=== PATIENT | female | born 1975 | race Caucasian/White ===

== ENCOUNTER 2022-10-01 05:16 | Emergency (ER) | payer OTHER, MEDICAID ==
[~2022-10-01] VITALS: Ht 157.5 cm; Wt 72.6 kg
[2022-10-01 05:22] VITALS: BP_SYST 129; PULSE 88; RESP 18; TEMP 98.5; O2SAT 99
[2022-10-01 06:04] LABS: BASOPHILS % (AUTO) 0.2 % (0.0-2.0); EOSINOPHILS # (AUTO) 0.3 K/uL (0.0-0.4); EOSINOPHILS % (AUTO) 3.1 % (0.0-4.0); HEMATOCRIT 40.3 % (36-48); HEMOGLOBIN 13.3 g/dL (12.0-16.0); LYMPHOCYTES # (AUTO) 1.9 K/uL (1.0-5.5); LYMPHOCYTES % (AUTO) 21.8 % (20.5-51.5); MEAN CORPUSCULAR HEMOGLOBIN 30 pg (27-31); MEAN CORPUSCULAR HGB CONC 33 % (32-36); MEAN CORPUSCULAR VOLUME 91 fL (79.0-98.0); MONOCYTES # (AUTO) 0.7 K/uL (0.0-1.0); MONOCYTES % (AUTO) 7.8 % (1.7-9.3); NEUTROPHILS # (AUTO) 5.8 K/uL (1.8-7.7); NEUTROPHILS % (AUTO) 67.1 % (40.0-70.0); PLATELET COUNT (AUTO) 233 K/uL (130-430); RED BLOOD CELL COUNT(AUTO) 4.45 MIL/uL (4.2-6.2); RED CELL DISTRIBUTION WIDTH 13.1 % (9.0-15.0); WHITE BLOOD COUNT (AUTO) 8.6 K/uL (4.8-10.8)
[2022-10-01 06:18] LABS: CALCIUM 8.5 mg/dL (8.4-11.0); CREATININE 0.88 mg/dL (0.55-1.30); POTASSIUM 3.8 mmol/L (3.5-5.1)
[2022-10-01 06:22] LABS: ALBUMIN 3.6 g/dL (3.4-4.8); TOTAL BILIRUBIN 0.6 mg/dL (0.0-1.0); TOTAL PROTEIN, SERUM 7.5 g/dL (6.4-8.3)
[2022-10-01 06:47] LABS: SERUM HCG (QUALITATIVE) NEGATIVE (NEGATIVE)
[2022-10-01 08:01] LABS: ACETONE, SERUM NEGATIVE (NEGATIVE)
[2022-10-01] MEDS ORDERED: AMOX-423 PO (08:51)
[2022-10-01] MEDS ORDERED: IBUP-1969 PO (08:51)
[2022-10-01] MEDS ORDERED: IBUPROFEN 800 MG TABLET PO ONE (09:00)
[2022-10-01] MEDS ORDERED: AMOXICILLIN/POTASSIUM CLAV 875 MG TABLET PO ONE (09:00)
[2022-10-01 10:04] VITALS: BP_SYST 107; PULSE 79; RESP 18; TEMP 97.8; O2SAT 99
== END 2022-10-01 10:03 | disposition home or self-care (01) ==
LOC: SED 05:16
DX: K57.92 Diverticulitis of intestine, part unspecified, without perforation or abscess without bleeding (principal); R10.32 Left lower quadrant pain; Z79.899 Other long term (current) drug therapy
CPT/HCPCS: 36415; 76376; 80053; 81025; 82009; 83605; 83690; 84703; 85025; 99284